=== PATIENT | female | born 1970 | race Caucasian/White ===

== ENCOUNTER 2017-05-25 21:24 | Emergency (ER) | payer OTHER ==
--- NOTE | ~2017-05-25 | CT71 ---
[facility] A Service of [facility] RADIOLOGY TEXT RESULTS PATIENT: CAREY TRIPLETT LOCATION: [facility] : 72 UNIT #: [id number] AGE: [address]: Tio Ferreira MD SEX: F ORDER DR: [id number] [facility] [address] [place], [place] [address] [id number] E MR#: [id number] Acc #: [id number] NAME: CAREY TRIPLETT : 1970 SEX: F STUDY DATE/TIME: 05/25/2017 22:33 UNIT: [facility] ROOM: STUDY DESCRIPTION: CT Head Wo Contrast Attending Physician: Tio Ferreira M.D. Ordering Physician: Tio Ferreira M.D. Primary Care Physician: Angie Chadwick MEDICAL IMAGING REPORT This report is preliminary unless electronic signature is present EXAM CT head, noncontrast, 05/25/2017 HISTORY 46-year-old female in the ED after head injury. Syncopal episode with fall, striking head on sink earlier this evening. She complains of headache and neck pain. TECHNIQUE CT examination of the head without IV contrast. This CT exam was performed with one or more of the following radiation dose reduction techniques: automatic control, adjustment of mA and/or kV according to patient size, and iterative reconstruction. FINDINGS The examination is negative. No evidence of intracranial hemorrhage, mass, mass effect, cerebral edema, hydrocephalus or additional abnormality. IMPRESSION Negative head CT examination. Dictated by... Nicolas Taylor M.D. THIS IS AN ELECTRONICALLY VERIFIED REPORT Nicolas Taylor M.D. at 05/26/2017 5:26 AM LOTUS/nayan TD: 05/26/2017 00:05 JOB #: [id number] MEDICAL IMAGING REPORT Page 1 of 1 COPY
--- NOTE | ~2017-05-25 | EKG ---
PATIENT: CAREY TRIPLETT UNIT #: [id number] Ventricular Rate: 104 BPM Atrial Rate: 104 BPM P-R Interval: 154 ms QRS Duration: 80 ms Q-T Interval: 350 ms QTC Calculation(Bezet): 460 ms P [place]: 44 degrees Calculated R [place]: 25 degrees Calculated T [place]: 35 degrees Diagnosis Line: Sinus tachycardia Diagnosis Line: Possible Left atrial enlargement Diagnosis Line: Poor R wave progression questionable lead position Diagnosis Line: or body habitus Diagnosis Line: Borderline ECG Diagnosis Line: No previous ECGs available Diagnosis Line: Confirmed by MARINA BRINK MD ([id number]) on 05/28/2017 Diagnosis Line: 10:44:18 PM INTERPRETING MD: CUBA GARLAND
--- NOTE | ~2017-05-25 | CT52 ---
[facility] A Service of [facility] / [facility] RADIOLOGY TEXT RESULTS PATIENT: CAERY TRIPLETT LOCATION: [facility] : 71 UNIT #: [id number] AGE: [address]: Tio Ferreira MD SEX: F ORDER DR: [id number] [facility] [address] [place], [place] [address] [id number] E MR#: [id number] #: [id number] NAME: CAREY TRIPLETT : 1970 SEX: F STUDY DATE/TIME: 05/25/2017 22:33 UNIT: [facility] ROOM: STUDY DESCRIPTION: CT Cervical Spine Wo Cont Attending Physician: Tio Ferreira M.D. Ordering Physician: Tio Ferreira M.D. Primary Care Physician: [facility] MED[facility] IMAGING REPORT This report is preliminary unless electronic signature is present EXAM CT cervical spine, 05/25/2017. HISTORY 46-year-old female in the ED after head injury earlier this evening. Syncopal episode with fall, striking head on sink. She complains of headache and neck pain. TECHNIQUE Thin-section axial CT images were obtained from the skull base through the upper margin of T2. Sagittal and coronal images were reconstructed. This CT exam was performed with one or more of the following radiation dose reduction techniques: automatic exposure control, adjustment of mA and/or kV according to patient size, and iterative reconstruction. FINDINGS No fracture or other acute osseous abnormality is demonstrated. Minimal degenerative disc space changes at C5-6. Remaining cervical disc spaces are normal, and cervical vertebral alignment is normal. IMPRESSION 1. No acute osseous abnormality. 2. Minimal degenerative disc space changes at C5-6. Dictated by... Nicolas Taylor M.D. THIS IS AN ELECTRONICALLY VERIFIED REPORT Nicolas Taylor M.D. at 05/26/2017 5:26 AM Bailey TD: 05/26/2017 00:04 [facility] A Service of [facility] RADIOLOGY TEXT RESULTS PATIENT: CAREY TRIPLETT LOCATION: [facility] #: [id number] : 72 UNIT #: [id number] AGE: [address]: Tio Ferreira MD SEX: F ORDER DR: JOB #: [id number] MEDICAL IMAGING REPORT Page 1 of 1 COPY
[2017-05-25 22:33] LABS: URINE SOURCE CLEAN CATCH
[2017-05-25 22:38] LABS: BASOPHIL% 0.3 % (0-2.5); HEMATOCRIT 48.8 % (35.0-45.0); HEMOGLOBIN 16.7 gm/dL (12.0-16.0); LYMPHOCYTE# 1.3 X10e3 (1.0-3.5); LYMPHOCYTE% 19.7 % (17.0-45.0); MEAN CELL VOLUME 83.7 FL (83-96); MEAN CORPUSCULAR HEMOGLOBIN 28.7 PG (28-34); MEAN CORPUSCULAR HGB CONC 34.3 g/dL (30-36); MEAN PLATELET VOLUME 8.1 FL (6.5-11.5); MONOCYTE# 0.5 X10e3 (0-1.0); MONOCYTE% 7.1 % (3.0-12.0); NEUTROPHIL# 4.9 X10e3 (1.5-7.1); NEUTROPHIL% 72.9 % (40-75); PLATELET COUNT 215 X10e3 (140-420); RED BLOOD COUNT 5.83 X10e (3.90-5.30); RED CELL DISTRIBUTION WIDTH 13.4 % (11.0-15.5); WHITE BLOOD COUNT 6.7 X10e3 (4.0-10.5)
[2017-05-25 22:40] LABS: DIFF IND NO; URINE APPEARANCE CLEAR; URINE BILIRUBIN NEG (NEG); URINE BLOOD NEG (NEG); URINE COLOR YELLOW; URINE GLUCOSE >1000 MG/DL (NEG); URINE KETONE NEG (NEG); URINE LEUKOCYTE ESTERASE NEG (NEG); URINE NITRATE NEG (NEG); URINE PROTEIN NEG (NEG); URINE SPECIFIC GRAVITY 1.047 (1.003-1.035); URINE UROBILINOGEN 0.2 MG/DL (NEG)
[2017-05-25 22:46] LABS: POC - CKMB <1.0 ng/mL (0.0-7.9); POC - TROPONIN <0.05 ng/mL (<=0.05)
[2017-05-25 22:49] LABS: CULTURE INDICATED? NO
[2017-05-25 22:54] LABS: PARTIAL THROMBOPLASTIN TIME 22.8 SECONDS (23.5-31.3); PROTHROMBIN TIME (PATIENT) 10.4 SECONDS (10.0-11.7)
[2017-05-25 22:57] LABS: CALCIUM SERUM 9.6 mg/dL (8.4-10.2); CREATININE SERUM 0.8 mg/dL (0.6-1.4); GLOM FILT RATE Estimated 89.1 mL/min (>60); POTASSIUM 3.9 mmol/L (3.5-5.1)
== END 2017-05-26 00:46 | disposition home or self-care (01) ==
LOC: CED 21:24
PROVIDERS: Emergency Medicine
DX: R55 Syncope and collapse (principal); S09.90XA Unspecified injury of head, initial encounter; E11.65 Type 2 diabetes mellitus with hyperglycemia; S16.1XXA Strain of muscle, fascia and tendon at neck level, initial encounter; W01.10XA Fall on same level from slipping, tripping and stumbling with subsequent striking against unspecified object, initial encounter
CPT/HCPCS: 36415; 70450; 72125; 80048; 81003; 82553; 82947; 84484; 85025; 85610; 85730; 93005; 96360; 99284